=== PATIENT | female | born 1995 | race Two or more races ===

== ENCOUNTER 2018-08-18 21:11 | Emergency (ER) | payer OTHER ==
[~2018-08-18] VITALS: Ht 154.9 cm; Wt 55.8 kg
[2018-08-18] MEDS ORDERED: TESTOSTERONE (21:25)
[2018-08-18 21:44] LABS: *BILIRUBIN,URIN NEGATIVE (NEGATIVE); *BLOOD, URINE 3+ (NEGATIVE); *CLARITY,URINE CLOUDY (CLEAR); *COLOR,URINE YELLOW (YELLOW); *KETONES,URINE NEGATIVE (NEGATIVE); *UROBILINOGEN,URINE 0.2 E.U./dl (NORMAL); LEUKOCYTE ESTERASE ,URINE 3+ (NEGATIVE); NITRITE, URINE POSITIVE (NEGATIVE); PH,URINE 6.5 (5.0-8.0); UGLUCOSE NEGATIVE (NEGATIVE)
[2018-08-18] MEDS ORDERED: ACETAMINOPHEN ES 500 MG TABLET ONE (21:44)
[2018-08-18] MEDS ORDERED: PHENAZOPYRIDINE HCL 100 MG TABLET ONE (21:44)
[2018-08-18 21:45] LABS: *URINE HCG, QUAL NEGATIVE (NEGATIVE)
[2018-08-18] MEDS ORDERED: PHENAZOPYRIDINE HCL 100 MG TABLET PO ONE (21:45)
[2018-08-18] MEDS ORDERED: ACETAMINOPHEN ES 500 MG TABLET PO ONE (21:45)
[2018-08-18 21:49] LABS: RBC,URINE 20-50 /HPF (0-3); WBC,URINE 80-100 /HPF (0-3)
[2018-08-18 21:50] LABS: BACTERIA,URINE MANY /HPF (NONE SEEN); SQUAMOUS EPITHELIAL CELL,UR FEW /HPF (NONE SEEN)
[2018-08-18] MEDS ORDERED: CEphaleXIN 500 MG CAPSULE PO ONE (22:30)
[2018-08-18] MEDS ORDERED: CEphaleXIN 500 MG CAPSULE ONE (22:36)
--- NOTE | 2018-08-18 22:39 | NUR ---
Patient discharged to home in stable conditon. Written and verbal after care instructions given. Patient verbalizes understanding of instructions.
== END 2018-08-18 22:51 | disposition home or self-care (01) ==
LOC: ER 21:13
DX: N39.0 Urinary tract infection, site not specified (principal); Z79.899 Other long term (current) drug therapy
CPT/HCPCS: 84703; A4663; A9150